=== PATIENT | female | born 1940 | race Caucasian/White ===

== ENCOUNTER 2019-06-12 11:35 | Emergency (ER) | payer MEDICARE, OTHER ==
--- NOTE | 2019-06-12 13:08 | ED Physician Documentation ---
PD HPI LOWER EXT INJURY - Stated complaint Stated Complaint: RT HIP PAIN - Chief complaint Chief Complaint: Trauma Ext - History obtained from History obtained from: Patient - History of Present Illness PD HPI LOW EXT INJURY LOCATION: Right, Hip, Other (lower back) Type of injury: Fall (as she stood up, lost balance. Denies lightheaded nor syncope.) Where injury occurred: Home Timing - onset: How many days ago (2) Timing - duration: Days (2) Timing - details: Abrupt onset, Still present Worsened by: Moving, Palpating, Other (walking, with pain lateral hip and some in low back) Associated symptoms: No: Weakness, Numbness Similar symptoms before: Has not had sx before Review of Systems Constitutional: denies: Fever, Chills Cardiac: denies: Chest pain / pressure, Palpitations Respiratory: denies: Dyspnea, Cough GI: denies: Abdominal Pain, Nausea, Vomiting, Diarrhea Skin: denies: Rash, Lesions, Abrasion (s), Laceration (s) Musculoskeletal: reports: Back pain, Extremity pain (lateral right hip) Neurologic: denies: Focal weakness, Numbness PD PAST MEDICAL HISTORY - Past Medical History Past Medical History: Yes Respiratory: None Neuro: Other Musculoskeletal: Osteoarthritis, Osteopenia Other Past Medical History: Restless leg - Past Surgical History Past Surgical History: Yes General: Appendectomy - Present Medications Home Medications: Ambulatory Orders Medication Instructions Recorded Confirmed Tramadol HCl 50 mg PO Q6H PRN #20 tablet 06/12/19 - Allergies Allergies/Adverse Reactions: Allergies Allergy/AdvReac Type Severity Reaction Status Date / Time No Known Drug Allergies Allergy Verified 06/12/19 11:55 - Social History Does the pt smoke?: No Smoking Status: Former smoker Does the pt drink ETOH?: Yes Does the pt have substance abuse?: No - Immunizations Immunizations are current?: Yes - POLST Patient has POLST: No PD ED PE NORMAL - Vitals Vital signs reviewed: Yes - General General: Alert and oriented X 3, No acute distress, Well developed/nourished - Cardiac Cardiac: RRR, No murmur - Respiratory Respiratory: Clear bilaterally, Other (no chestwall tenderness) - Abdomen Abdomen: Soft, Non tender - Back Back: No CVA TTP, Other (some tenderness lower right paralumbar. ) - Derm Derm: Normal color, Warm and dry - Extremities Extremities: No edema, No calf tenderness / cord, Other (right lateral hip and posterior pelvis around SI area with some tenderness. No tenderness in hip joint itself, and no pain with impaction nor rotational movement. ) Results - Vitals Vitals: Oxygen O2 Source Room air - Rads (name of study) pelvic and lumbar CT Radiology: Prelim report reviewed (arthritic changes, No fractures. ), See rad report PD MEDICAL DECISION MAKING - ED course Complexity details: reviewed results (no fractures on CT), considered differential, d/w patient Departure - Departure Disposition: 01 Home, Self Care Clinical Impression: Fall from slip, trip, or stumble Qualifiers: Encounter type: initial encounter Qualified Code(s): W01.0XXA - Fall on same level from slipping, tripping and stumbling without subsequent striking against object, initial encounter Pelvic contusion Qualifiers: Encounter type: initial encounter Qualified Code(s): S30.0XXA - Contusion of lower back and pelvis, initial encounter Condition: Stable Record reviewed to determine appropriate education?: Yes Instructions: ED Contusion Hip Prescriptions: Tramadol HCl 50 mg PO Q6H PRN #20 tablet PRN Reason: Pain Comments: Your CT scans did not show any fractures of the lower spine nor pelvis or hip. There is arthritis's in the areas. He will certainly be sore from having fallen to the side. Use some ibuprofen with food twice daily. To that add Tylenol 650 mg 4 times a day for the next several days to week. To that add tramadol if needed for pains. Recheck if not better over the next several days to week. Discharge Date/Time: 06/12/19 14:51
[2019-06-12] MEDS ORDERED: ACETAMINOPHEN 325 MG TABLET PO STA (13:21)
--- NOTE | 2019-06-12 14:13 | CT Report ---
Reason: fall to right; pain lumbar and right gluteal Procedure Date: 06/12/2019 Accession Number: [id number] / [id number] Procedure: CT - LUMBAR SPINE WO CPT Code: FULL RESULT: EXAM: CT LUMBAR SPINE WITHOUT CONTRAST EXAM DATE: 06/12/2019 01:40 PM. CLINICAL HISTORY: Fall to right; pain lumbar and right gluteal. COMPARISONS: None. TECHNIQUE: Thin-section axial images were acquired of the lumbar spine from T12 to S1 without contrast. Post-processing: Coronal and sagittal reformats. Other: None. In accordance with CT protocol optimization, one or more of the following dose reduction techniques were utilized for this exam: automated exposure control, adjustment of mA and/or KV based on patient size, or use of iterative reconstructive technique. FINDINGS: Alignment: No scoliosis or spondylolisthesis. Bones: Moderate dextroconvex scoliosis. No fractures or bone lesions. Disk Levels/Facets: Marked disk height narrowing at L4-L5 with lesser similar changes elsewhere. See below for additional comments. T12-L1: Unremarkable. L1-L2: Generalized disk bulge without focal protrusion. Moderate central canal stenosis. Moderate bilateral facet arthropathy. L2-L3: Generalized disk bulge without focal protrusion. Moderate central canal stenosis. Moderate bilateral facet arthropathy. L3-L4: Generalized disk bulge without focal protrusion. Moderate central canal stenosis. Moderate bilateral facet arthropathy. L4-L5: Generalized disk bulge without focal protrusion. Severe central canal stenosis. Severe bilateral facet arthropathy. L5-S1: No evidence of focal disk protrusion or significant central canal stenosis. Musculature: Normal. No fatty atrophy. Other: The visualized retroperitoneum is unremarkable. IMPRESSION: 1. No acute fracture. 2. Moderate dextroconvex scoliosis. 3. Multilevel disk height narrowing without focal disk protrusion, most severe at L4-L5. 4. Multilevel central canal stenosis which is severe at L4-L5. 5. Multilevel facet arthropathy as described above. [facility]
--- NOTE | 2019-06-12 14:18 | CT Report ---
Reason: fall to right; pain lumbar and right gluteal Procedure Date: 06/12/2019 Accession Number: [id number] / [id number] Procedure: CT - PELVIS WO CPT Code: FULL RESULT: EXAM: CT BONY PELVIS WITHOUT CONTRAST EXAM DATE: 06/12/2019 01:40 PM. CLINICAL HISTORY: Fall to right; pain lumbar and right gluteal. COMPARISON: None. TECHNIQUE: Thin-section axial images were acquired of the pelvis without contrast. Post-processing: Coronal and sagittal reformats. Other: None. In accordance with CT protocol optimization, one or more of the following dose reduction techniques were utilized for this exam: automated exposure control, adjustment of mA and/or KV based on patient size, or use of iterative reconstructive technique. FINDINGS: Bones: No fracture or bone lesion. Sacroiliac Joints: There is mild bilateral sacroiliac joint arthritis. There is moderate degenerative change of the lower lumbar spine. Symphysis Pubis: There is moderate osteoarthritis of the pubic symphysis. Bilateral hip: There is moderate bilateral hip joint space narrowing with osteophyte formation consistent with osteoarthritis. Musculature: Normal. No fatty atrophy. Pelvic Cavity: The visualized bowel, bladder, and reproductive organs are unremarkable on this noncontrast exam. Other: No lymphadenopathy. No free air or free fluid. The other visualized soft tissues are unremarkable. No subcutaneous or intramuscular hematoma. Mild right subcutaneous fat stranding suggestive of a contusion. IMPRESSION: No visible fracture. Osteoarthritis of the hips, sacroiliac joints and lower lumbar spine. [facility]
[2019-06-12] MEDS ORDERED: traMADol 50 MG TABLET PO STA (14:46)
[2019-06-12 14:52] VITALS: BP 120/84
== END 2019-06-12 14:51 | disposition home or self-care (01) ==
LOC: ED 11:35
DX: S30.0XXA Contusion of lower back and pelvis, initial encounter (principal); W01.0XXA Fall on same level from slipping, tripping and stumbling without subsequent striking against object, initial encounter; Z87.891 Personal history of nicotine dependence
CPT/HCPCS: 72131; 72192; 99284; A9270